=== PATIENT | male | born 1960 | race Caucasian/White ===

== ENCOUNTER → 2021-11-15 | Outpatient (CLI) | payer OTHER ==
[~2021-11-15] MED LIST: ACET500 PO; ALBU90OI INH; ASPI325EC PO; BUDESONIDE1 MG/2 M1 INH; Doxycycline Mo100 M1 PO; IPRAT-ALBUT 0.5-3 ML INH; IVERMECTIN3 MG PO; Prednisone10 MG PO
[2021-11-15 10:31] LABS: BASOPHILS ABSOLUTE AUTO 0.02 K/mm3 (0.00-0.23); BASOPHILS PERCENT AUTO 1 % (0-2); EOSINOPHILS PERCENT AUTO 0 % (0-6); Hematocrit 43.5 % (37.0-53.0); Hemoglobin 14.9 g/dL (13.5-17.5); IMMATURE GRAN ABSOLUTE AUTO 0.05 K/mm3 (0.00-0.10); IMMATURE GRAN PERCENT AUTO 1 % (0-1); LYMPHOCYTES ABSOLUTE AUTO 0.83 K/mm3 (0.84-5.20); LYMPHOCYTES PERCENT AUTO 20 % (21-46); MONOCYTES ABSOLUTE AUTO 0.25 K/mm3 (0.16-1.47); MONOCYTES PERCENT AUTO 6 % (4-13); Mean Corpuscular HGB 28.9 pg (26.0-34.0); Mean Corpuscular HGB Conc 34.3 g/dL (31.5-36.5); Mean Corpuscular Volume 85 fL (80-100); NEUTROPHILS PERCENT AUTO 73 % (41-73); RDW Coefficient Variation 11.9 % (11.7-14.2); Red Blood Cell Count 5.15 M/mm3 (4.30-5.90); White Blood Cell Count 4.25 K/mm3 (4.00-11.30)
[2021-11-15 10:34] LABS: Alanine Aminotransfer (ALT/SGP 47 U/L (12-78); Albumin, Blood 3.8 g/dL (3.4-5.0); Albumin/Globulin Ratio 1.2 (0.8-1.8); Alk Phos 69 U/L (40-126); Anion Gap 12 mmol/L (6-16); Aspartate Aminotrans (AST/SGOT 39 U/L (12-37); Bilirubin, Total 0.5 mg/dL (0.1-1.0); Blood Urea Nitrogen 13 mg/dL (8-24); Bun/Creatinine Ratio 12.5 (12.0-20.0); CO2, Blood 27 mmol/L (21-32); Chloride, Blood 104 mmol/L (98-108); Creatinine, Blood 1.04 mg/dL (0.60-1.20); Globulin, Blood 3.3 g/dL (2.2-4.0); Glomerular Filtration Rate >60 (60-); Glucose, Blood 128 mg/dL (70-99); Potassium, Blood 4.5 mmol/L (3.5-5.5); Sodium, Blood 143 mmol/L (136-145); Total Protein, Blood 7.1 g/dL (6.4-8.2)
[2021-11-15 10:35] LABS: Mean Platelet Volume 11.5 fL (9.1-12.4)
[2021-11-15 11:54] LABS: Platelet Count 118 K/mm3 (150-400)
== END | disposition home or self-care (01) ==
LOC: LAB SHORT 10:09 → LAB 10:09
PROVIDERS: Physician Assistant
DX: R09.02 Hypoxemia (principal)
CPT/HCPCS: 80053; 85025; 85379

== ENCOUNTER 2021-11-19 07:43 | Inpatient (IN) | payer OTHER ==
[~2021-11-19] VITALS: Ht 167.6 cm; Wt 66.7 kg
[2021-11-19 09:18] LABS: BASOPHILS ABSOLUTE AUTO 0.01 K/mm3 (0.00-0.23); BASOPHILS PERCENT AUTO 0 % (0-2); EOSINOPHILS PERCENT AUTO 0 % (0-6); Hematocrit 40.3 % (37.0-53.0); Hemoglobin 13.5 g/dL (13.5-17.5); IMMATURE GRAN ABSOLUTE AUTO 0.09 K/mm3 (0.00-0.10); IMMATURE GRAN PERCENT AUTO 1 % (0-1); LYMPHOCYTES ABSOLUTE AUTO 0.46 K/mm3 (0.84-5.20); LYMPHOCYTES PERCENT AUTO 6 % (21-46); MONOCYTES ABSOLUTE AUTO 0.39 K/mm3 (0.16-1.47); MONOCYTES PERCENT AUTO 5 % (4-13); Mean Corpuscular HGB 28.5 pg (26.0-34.0); Mean Corpuscular HGB Conc 33.5 g/dL (31.5-36.5); Mean Corpuscular Volume 85 fL (80-100); Mean Platelet Volume 10.4 fL (9.1-12.4); NEUTROPHILS ABSOLUTE AUTO 6.38 K/mm3 (1.96-9.15); NEUTROPHILS PERCENT AUTO 87 % (41-73); Platelet Count 203 K/mm3 (150-400); RDW Coefficient Variation 11.5 % (11.7-14.2); RDW Standard Deviation 35.9 fL (35.1-46.3); Red Blood Cell Count 4.73 M/mm3 (4.30-5.90); White Blood Cell Count 7.33 K/mm3 (4.00-11.30)
[2021-11-19 09:33] LABS: Alanine Aminotransfer (ALT/SGP 88 U/L (12-78); Albumin, Blood 2.7 g/dL (3.4-5.0); Albumin/Globulin Ratio 0.6 (0.8-1.8); Alk Phos 63 U/L (50-136); Anion Gap 9 mmol/L (6-16); Aspartate Aminotrans (AST/SGOT 46 U/L (12-37); Bilirubin, Total 0.5 mg/dL (0.1-1.0); Blood Urea Nitrogen 17 mg/dL (8-24); Bun/Creatinine Ratio 22.7 (12.0-20.0); CO2, Blood 21 mmol/L (21-32); Chloride, Blood 113 mmol/L (98-108); Creatinine, Blood 0.75 mg/dL (0.60-1.20); Globulin, Blood 4.4 g/dL (2.2-4.0); Glomerular Filtration Rate >60 (60-); Glucose, Blood 124 mg/dL (70-99); Potassium, Blood 3.4 mmol/L (3.5-5.5); Sodium, Blood 143 mmol/L (136-145); Total Protein, Blood 7.1 g/dL (6.4-8.2)
[2021-11-19 10:08] LABS: Base Excess Venous 0.8 mmol/L; Bicarbonate Venous 24.6 mmol/L (24.0-30.0); PCO2 Venous 42.6 mmHg (38-42); PO2 Venous 53.2 mmHg (38-42); pH Blood Venous 7.39 (7.34-7.37)
[2021-11-19] MEDS ORDERED: IVERMECTIN3 MG PO (14:53)
[2021-11-19] MEDS ORDERED: Prednisone10 MG PO (14:57)
[2021-11-19] MEDS ORDERED: Doxycycline Mo100 M1 PO (14:58)
[2021-11-19] MEDS ORDERED: ASPI325EC PO (15:01)
[2021-11-19] MEDS ORDERED: IPRAT-ALBUT 0.5-3 ML INH (15:05)
[2021-11-19] MEDS ORDERED: BUDESONIDE1 MG/2 M1 INH (15:06)
[2021-11-19] MEDS ORDERED: ACET500 PO (15:07)
[2021-11-19] MEDS ORDERED: ALBU90OI INH (15:09)
--- NOTE | 2021-11-19 16:47 | NUR ---
PT ARRIVED TO ROOM AT 1415. PT CONTINUES TO FEEL VERY TIRED, BUT STATES HE IS FEELING MUCH BETTER COMPARED TO WHEN HE FIRST ARRIVED. PT IS NOW ON 4L OF O2 AND MAINTING MID 90s. PT HAS CALL LIGHT WITHIN REACH. WILL CONTINUE TO MONITOR.
--- NOTE | 2021-11-20 05:12 | NUR ---
PT WAS ALERT AND OREINTED X4, IND IN ROOM, ON 5L NC AND DESATS INTO THE LOW 80'S WITHOUT O2 AND AMBULATION. PT EDUCATED ON KEEPING NC IN PLACE AND USING CALL LIGHT TO MAKE NEEDS KNOWN. PT CONTINUES TO HAVE DIARRHEA. LUNGS ARE DIM IN LOWER BASES, CLEAR WITH PRODUCTIVE COUGH. STAFF WILL CONT TO MONITOR.
[2021-11-20 05:34] LABS: BASOPHILS ABSOLUTE AUTO 0.01 K/mm3 (0.00-0.23); BASOPHILS PERCENT AUTO 0 % (0-2); EOSINOPHILS PERCENT AUTO 0 % (0-6); Hematocrit 39.5 % (37.0-53.0); Hemoglobin 13.4 g/dL (13.5-17.5); IMMATURE GRAN PERCENT AUTO 1 % (0-1); LYMPHOCYTES ABSOLUTE AUTO 0.69 K/mm3 (0.84-5.20); LYMPHOCYTES PERCENT AUTO 8 % (21-46); MONOCYTES ABSOLUTE AUTO 0.68 K/mm3 (0.16-1.47); MONOCYTES PERCENT AUTO 8 % (4-13); Mean Corpuscular HGB 28.6 pg (26.0-34.0); Mean Corpuscular HGB Conc 33.9 g/dL (31.5-36.5); Mean Corpuscular Volume 84 fL (80-100); Mean Platelet Volume 10.5 fL (9.1-12.4); NEUTROPHILS ABSOLUTE AUTO 7.46 K/mm3 (1.96-9.15); NEUTROPHILS PERCENT AUTO 84 % (41-73); Platelet Count 233 K/mm3 (150-400); RDW Coefficient Variation 11.5 % (11.7-14.2); RDW Standard Deviation 35.1 fL (35.1-46.3); Red Blood Cell Count 4.69 M/mm3 (4.30-5.90); White Blood Cell Count 8.94 K/mm3 (4.00-11.30)
[2021-11-20 06:31] LABS: Anion Gap 12 mmol/L (6-16); Blood Urea Nitrogen 21 mg/dL (8-24); Bun/Creatinine Ratio 27.6 (12.0-20.0); CO2, Blood 22 mmol/L (21-32); Calcium, Blood 9.1 mg/dL (8.5-10.1); Chloride, Blood 109 mmol/L (98-108); Creatinine, Blood 0.76 mg/dL (0.60-1.20); Glomerular Filtration Rate >60 (60-); Glucose, Blood 104 mg/dL (70-99); Potassium, Blood 4.3 mmol/L (3.5-5.5); Sodium, Blood 143 mmol/L (136-145)
--- NOTE | 2021-11-20 17:02 | NUR ---
NO ACUTE CHANGES PT AOX4 AND COOPERATIVE OF CARE. PT MAINTINING MID 90s ON 5L O2. PT IS A STANDBY ASSIST AND CALLS APPROPRIATELY. NO DISTRESS NOTED AND WILLING TO TURN WHEN NEEDED TO HELP HIS O2 LEVELS MAINTAIN. CALL ALARM WITHIN REACH WILL CONTINUE TO MONITOR.
--- NOTE | 2021-11-21 05:51 | NUR ---
A&0X4, STARTED THE NIGHT ON 4L, DESATED AND REQUIRED OXYMIZER FOR A SHORT PERIOD, PATIENT ABLE TO PRONE AND TRANSITION BACK TO [place]. REPORTS HAVING DARK STOOL, IS AWARE STOOL SAMPLE IS NEEDED. PATIENT IS EAGER TO GET BETTER AND RETURN HOME. NO ACUTE CHANGES OVERNIGHT.
--- NOTE | 2021-11-21 13:39 | NUR ---
PT NON COMPLIANT. STATES HE DOES NOT WANT ANYONE IN HIS ROOM AND DOES NOT WANT ANYONE TO KNOCK ON HIS DOOR. PT REFUSED LAB DRAWS AND ANY MORE MEDICATIONS AT THIS TIME. STATES HE IS RECORDING EVERYTHING BECAUSE "NO ONE IS LISTENING WHEN I ASK FOR THINGS AND NO ONE IS DOING WHAT I NEED." WHEN THIS NURSE TRIED TO EXPLAIN THE REASON FOR MEDICATIONS AND LABS HE STATED "YOU CALL IT TRYING TO HELP, I CALL IT INEPTITUDE" PT REFUSING O2 AT THIS TIME WELL, HE TOOK IT OFF AND PUT IT ON THE FLOOR. PT WAS ON HIGH FLOW O2 FOR COVID 19.
--- NOTE | 2021-11-21 14:38 | NUR ---
UPDATE: WET CROWN BLOCKING OPERATOR CHANDRA CALLED TO NOTIFY RN THAT PT'S HR WAS IN THE 160'S. THIS RN WENT TO PT'S ROOM AND CONT. BIOX SHOWED HR IN THE 180'S AND O2 SATS RANGING 78-80%. PT UP IN ROOM, AGITATED. [place] RN WITH PT TRYING TO PROVIDE REASSURANCE AND HELP CONTROL HIS BREATHING. PT IS UPSET ABOUT BEING IN THE HOSPITAL AND NEEDING ASSISTANCE WITH THINGS. THIS RN CALLED DR. SANCHEZ WHO GAVE A ONE TIME ORDER FOR 1 MG IV ATIVAN. BROUGHT ATIVAN TO THE ROOM, AND PT WAS BACK IN BED, VISITOR AT BEDSIDE. PT NOT WANTING THE ATIVAN AT THIS TIME. HR DOWN TO 81 AND O2 AT 92% ON 5 L VIA NC. RT AILYN TO ROOM TO ASSESS PT.
--- NOTE | 2021-11-21 16:15 | NUR ---
DAY SHIFT SUMMARY PT HAS BEEN AGITATED, VERBALLY AGRESSIVE, AND NON-COMPLIANT THIS SHIFT. PT MAIN COMPLAINT IS THAT HE WANTS TO BE LEFT ALONE TO SLEEP WITHOUT INTERUPTIONS. LABS, VITALS, AND MEDICATIONS HAVE BEEN REFUSED. CALL LIGHT WITHIN REACH OF PT. PT ON 5L O2 NC AT TIME OF THIS WRITING. SED'S HAVE BEEN ORDERED, PT REFUSES USE. STOOL SAMPLE UNABLE TO BE OBTAINED. PT INDEPENDENT IN ROOM. CURRENTLY TELE ON WITH SR AT 76. VISITOR HERMILA AT BEDSIDE AND PT HAS CALMED DOWN AND IS NOW RESTING. WILL CONTINUE TO MONITOR THROUGH REMAINDER OF SHIFT.
[2021-11-21 17:16] LABS: Hemoglobin 14.6 g/dL (13.5-17.5)
--- NOTE | 2021-11-21 22:40 | NUR ---
DURING REGULAR ROUNDING, JOSE BECAME IRRITATED AND JUMPED OUT OF BED TO RAISE THEIR VOICE AT ME. STATING THAT I WAS "PUPOSEFULLY" WAKING THEM UP FOR NOTHING AND CONTINUTED TO STATE THAT I WAS INCOMPETENT AT MY JOB. I DID NOT DO ANYTHING OTHER THAN OPEN THE DOOR TO LAY EYES ON THE PATIENT SO THAT I COULD ENSURE THAT THEY WERE IN NO ACUTE DISTRESS. I STATED THIS TO THE PATIENT AND EDUCATED HIM ON WHAT HOURLY ROUNDING AND Q2 ROUNDING WAS ON LINING CASER AND WHAT THAT 4-P'S ARE. THE PATIENT REQUESTED NOT TO BE BOTHERED UNLESS HE DECIDED TO USE THE CALL LIGHT. HIS CURRENT NURSE HAS BEEN INFORMED.
--- NOTE | 2021-11-22 00:54 | NUR ---
PATIENT HAS BEEN VERY RUDE AND UNRULY TONIGHT TOWARDS STAFF. MANAGER PRODUCT DESIGN WAS DOING HER JOB AND ROUNDING ON THE PATIENTS PER PROTOCOL. SHE SIMPLY OPENED THIS PATIENTS DOOR TO PEEK IN ON THE PATIENT AND MAKE SURE ALL WAS OKAY. PATIENT APPARENTLY WAS AWOKEN DURING HER ROUNDING AND BECAME VERY UPSET THAT SHE "WOKE HIM". PATIENT HAS BEEN VERY DISRESPECTFUL AND RUDE TO STAFF SINCE THEN. I HAD CALLED THE EARTH SCIENCE FACULTY MEMBER PROVIDER TO REQUEST A SECOND DOSE OF THE MELATONIN FOR THE PATIENT AND TOOK IT IN TO HIM AND HE CONTINUED TO BE DISRESPECTFUL AND RUDE TO ME AT THIS TIME. TRACI, TABLET MACHINE OPERATOR, NOTIFIED AND ASKED TO GO SPEAK WITH THE PATIENT REGARDING HIS BEHAVIOR.
--- NOTE | 2021-11-22 04:34 | NUR ---
THE SECOND DOSE OF MELATONIN MUST HAVE BEEN EFFECTIVE ON THE PATIENT, HE WAS NO LONGER CALLING STAFF INTO HIS ROOM TO EXPRESS HIS FRUSTERATION WITH APPROX 30 MINUTES AFTER TAKING THE MEDICATION. PER THE PATIENTS REQUEST I HAVE ASKED THAT NO STAFF MEMBERS INTERUPT OR GO INTO THE PATIENTS ROOM THIS MORNING. I INSTRUCTED THE COMMERCIAL REAL ESTATE BROKER NOT TO GET MORNING VITALS AND ASKED LAB TO COME BACK BETWEEN 8 AND 9 THIS MORNING. PATIENT APPEARS TO BE SLEEPING COMFORTABLY IN BED AT THIS TIME. CALL LIGHT WITHIN REACH.
--- NOTE | 2021-11-22 17:08 | NUR ---
SUMMARY PT SITTING UP IN BED VISITING WITH HIS SPOUSE, PT HAS BEEN COOPERATIVE WITH CARE T/O THE DAY, HAD MANY QUESTIONS ABOUT MEDICATIONS EARLY THIS MORNING, EDUCATED PT REGARDING THE MEDICATIONS HE HAS BEEN PRESCRIBED IN THE HOSPITAL AND THEIR SIDE EFFECTS, PT HAS BEEN ON HIGH FLOW O2 3-5L NC, SATS REMAIN MID 80'S TO LOW 90'S DEPENDING ON ACTIVITY LEVEL, PT AND SPOUSE HOPEFUL HE CAN DISCHARGE TO HOME TOMORROW, VSS, WILL CONT TO MONITOR
--- NOTE | 2021-11-23 05:00 | NUR ---
SHAUNA OXYGEN LEVEL REMAINED IN THE MID 90'S ALL NIGHT. HE RECEIVED MELATONIN FOR SLEEP AND LORAZEPAM FOR ANXIETY. THAT APPARENTLY HELPED HIM SLEEP. HE REQUESTED NOT TO BE WAKEN UP TO EARLY FOR LABS OR VITALS SO THESE ARE POSTPONED. PRODUCTION PLANNER SCHEDULER PLANS ON RETURNING AROUND 7:30 AM
[2021-11-23 07:54] LABS: Hematocrit 42.7 % (37.0-53.0); Hemoglobin 14.1 g/dL (13.5-17.5)
--- NOTE | 2021-11-23 08:39 | NUR ---
UPDATE PT WAS ON 5L THIS AM, NOW ON 15L, SATS MID 80'S, RT PRESENT, DR SANCHEZ NOTIFIED
--- NOTE | 2021-11-23 17:34 | NUR ---
SUMMARY PT UP TO THE BATHROOM, IN ROOM ASSISTING, PT HAS BEEN COOPERATIVE WITH CARE T/O THE DAY, REMAINS ON 10L HIGH FLOW NASAL CANNULA, PT STARTING TO COUGH UP SECRETIONS, DR SANCHEZ AWARE, SHE DID COME BY AND SPEAK WITH THE SPOUSE ABOUT PT'S PROGRESS, PT HAS BEEN RESTING IN BED FOR MOST OF THE DAY, OCC USING THE URINAL, OCC UP TO THE BATHROOM, HAS BEEN INDEPENDENT, DESATS TO MID TO LOW 80'S WHEN UP, TAKES A WHILE TO RECOVER, WILL CONTINUE TO MONITOR
--- NOTE | 2021-11-24 04:19 | NUR ---
JIM IS STILL ON 5L NC, SPO2 IN THE UPPER 90'S. WAS ADMINISTERED MELATONIN AT BED TIME. HE REMAINED STABLE AND SLEPT ALL NIGHT.
[2021-11-24 07:53] LABS: BASOPHILS ABSOLUTE AUTO 0.04 K/mm3 (0.00-0.23); BASOPHILS PERCENT AUTO 0 % (0-2); EOSINOPHILS ABSOLUTE AUTO 0.09 K/mm3 (0.00-0.68); EOSINOPHILS PERCENT AUTO 1 % (0-6); Hematocrit 42.3 % (37.0-53.0); Hemoglobin 14.3 g/dL (13.5-17.5); IMMATURE GRAN ABSOLUTE AUTO 0.34 K/mm3 (0.00-0.10); IMMATURE GRAN PERCENT AUTO 4 % (0-1); LYMPHOCYTES ABSOLUTE AUTO 1.41 K/mm3 (0.84-5.20); LYMPHOCYTES PERCENT AUTO 14 % (21-46); MONOCYTES ABSOLUTE AUTO 1.21 K/mm3 (0.16-1.47); MONOCYTES PERCENT AUTO 12 % (4-13); Mean Corpuscular HGB 28.9 pg (26.0-34.0); Mean Corpuscular HGB Conc 33.8 g/dL (31.5-36.5); Mean Corpuscular Volume 86 fL (80-100); Mean Platelet Volume 9.9 fL (9.1-12.4); NEUTROPHILS ABSOLUTE AUTO 6.75 K/mm3 (1.96-9.15); NEUTROPHILS PERCENT AUTO 69 % (41-73); Platelet Count 397 K/mm3 (150-400); RDW Coefficient Variation 11.5 % (11.7-14.2); RDW Standard Deviation 35.8 fL (35.1-46.3); Red Blood Cell Count 4.95 M/mm3 (4.30-5.90); White Blood Cell Count 9.84 K/mm3 (4.00-11.30)
[2021-11-24 08:14] LABS: Albumin, Blood 2.7 g/dL (3.4-5.0); Anion Gap 7 mmol/L (6-16); Blood Urea Nitrogen 26 mg/dL (8-24); Bun/Creatinine Ratio 30.8 (12.0-20.0); CO2, Blood 26 mmol/L (21-32); Calcium, Blood 9.2 mg/dL (8.5-10.1); Chloride, Blood 110 mmol/L (98-108); Creatinine, Blood 0.84 mg/dL (0.60-1.20); Glomerular Filtration Rate >60 (60-); Glucose, Blood 109 mg/dL (70-99); Phosphorus, Blood 2.8 mg/dL (2.5-4.9); Sodium, Blood 143 mmol/L (136-145)
--- NOTE | 2021-11-24 16:24 | NUR ---
SHIFT SUMMARY PATIENT IS A/O X4, PLEASANT AND COOPERATIVE WITH CARE. PATIENT HAS BEEN TITRATED DOWN TO 3LPM OF HIGH FLOW 02, SATTING AT 93%, SPOUSE AT BEDSIDE MOST OF AFTERNOON. PATIENT HAS BEEN INDEPENDENT TO BATHROOM THIS SHIFT. PATIENT COMPLAINED OF INSOMNIA THIS SHIFT. DOC NOTIFIED. PATIENT REFUSED EVENING DOSE OF PROTONIX. PATIENT SAYS THEY PROBABLY WILL NOT TAKE SLEEP MEDS ORDERED FOR THEM. NO ACUTE CHANGES THIS SHIFT. WILL CONTINUE TO CARE FOR THE PATIENT UNTIL SHIFT REPORT IS GIVEN TO ONCOMING NURSE.
--- NOTE | 2021-11-25 04:45 | NUR ---
SHIFT SUMMARY JIM: JIM REMAINED STABLE ALL NIGHT HR IN THE MID 70'S SPO2 MID 90'S. VITALS WERE STABLE. HE WAS ADMINISTERED HIS SLEEPING PILLS. HE DID NOT CALL FOR ANYTHING ALL NIGHT.
[2021-11-25] MEDS ORDERED: BENADRYL25 MG PO (13:49)
[2021-11-25] MEDS ORDERED: GUAIFENESIN ER600 MG PO (13:50)
[2021-11-25] MEDS ORDERED: DEXA6 PO (13:51)
[2021-11-25] MEDS ORDERED: MELATONIN5 M1 PO (13:51)
[2021-11-25] MEDS ORDERED: OMEP20ER PO (13:52)
--- NOTE | 2021-11-25 14:42 | NUR ---
PT DISCHARGING TO HOME WITH . PT IN ROOM TO DISCUSS DISCHARGE INSTRUCTIONS INCLUDING FOLLOW UP APPOINTMENTS, DC MEDICATION AND PT EDUCATION. RESP THERAPY IN ROOM FOR HOME O2 EVAL. NO HOME O2 NEEDED AT THIS TIME. PT AND VERBALIZES UNDERSTANDING. DENIES ANY FURTHER QUESTIONS AT THIS TIME.
== END 2021-11-25 14:30 | disposition home or self-care (01) | DRG 177 ==
LOC: ER 07:43 → ERHOLD 10:04 → MEDS 14:30
PROVIDERS: Family Medicine; ADMIT Family Medicine
PROC: 3E0333Z Introduction of Anti-inflammatory into Peripheral Vein, Percutaneous Approach (ICD-10-PCS; principal; 2021-11-19)
PROC: 8E0ZXY6 Isolation (ICD-10-PCS; 2021-11-19)
PROC: XW033E5 Introduction of Remdesivir Anti-infective into Peripheral Vein, Percutaneous Approach, New Technology Group 5 (ICD-10-PCS; 2021-11-20)
DX: U07.1 COVID-19 (principal); J96.01 Acute respiratory failure with hypoxia; J12.82 Pneumonia due to coronavirus disease 2019; F41.9 Anxiety disorder, unspecified; G47.00 Insomnia, unspecified; R79.89 Other specified abnormal findings of blood chemistry; Z98.890 Other specified postprocedural states; Z79.899 Other long term (current) drug therapy; E87.6 Hypokalemia
CPT/HCPCS: 36415; 71045; 80048; 80053; 80069; 82803; 83605; 85014; 85018; 85025; 94640; 94761; 94762; 96365; 96375; 99285-25; A9270; C9113; J0248; J1100; J1650; J2060

== ENCOUNTER 2024-03-08 09:22 | Emergency (ER) | payer SELFPAY ==
[~2024-03-08] VITALS: Ht 172.7 cm; Wt 70.3 kg
[~2024-03-08 09:22] MED LIST changes: +BENADRYL25 MG PO; +DEXA6 PO; +GUAIFENESIN ER600 MG PO; +MELATONIN5 M1 PO; +OMEP20ER PO
[2024-03-08] MEDS ORDERED: NS 1,000 ML IV SCH (09:50)
[2024-03-08] MEDS ORDERED: HYDROmorphone HCl/Pf 1MG SYR IV ONE (09:50)
[2024-03-08] MEDS ORDERED: Ondansetron HCl 2 MG / ML 2ML Vial IV ONE (09:50)
[2024-03-08 09:56] LABS: BASOPHILS ABSOLUTE AUTO 0.05 K/mm3 (0.00-0.23); BASOPHILS PERCENT AUTO 1 % (0-2); EOSINOPHILS ABSOLUTE AUTO 0.06 K/mm3 (0.00-0.68); EOSINOPHILS PERCENT AUTO 1 % (0-6); Hematocrit 41.4 % (37.0-53.0); Hemoglobin 14.3 g/dL (13.5-17.5); IMMATURE GRAN ABSOLUTE AUTO 0.04 K/mm3 (0.00-0.10); IMMATURE GRAN PERCENT AUTO 0 % (0-1); LYMPHOCYTES ABSOLUTE AUTO 1.22 K/mm3 (0.84-5.20); LYMPHOCYTES PERCENT AUTO 12 % (21-46); MONOCYTES PERCENT AUTO 5 % (4-13); Mean Corpuscular HGB 29.5 pg (26.0-34.0); Mean Corpuscular HGB Conc 34.5 g/dL (31.5-36.5); Mean Corpuscular Volume 85 fL (80-100); Mean Platelet Volume 12.1 fL (9.1-12.4); NEUTROPHILS ABSOLUTE AUTO 8.47 K/mm3 (1.96-9.15); NEUTROPHILS PERCENT AUTO 82 % (41-73); Platelet Count 141 K/mm3 (150-400); RDW Coefficient Variation 11.9 % (11.7-14.2); RDW Standard Deviation 37.2 fL (35.1-46.3); Red Blood Cell Count 4.85 M/mm3 (4.30-5.90); White Blood Cell Count 10.34 K/mm3 (4.00-11.30)
[2024-03-08 10:34] LABS: Albumin, Blood 4.3 g/dL (3.4-5.0); Albumin/Globulin Ratio 1.4 (0.8-1.8); Bilirubin, Total 0.8 mg/dL (0.1-1.0); Bun/Creatinine Ratio 12.5 (12.0-20.0); Calcium, Blood 9.6 mg/dL (8.5-10.1); Creatinine, Blood 1.2 mg/dL (0.60-1.20); Globulin, Blood 3.1 g/dL (2.2-4.0); Potassium, Blood 3.4 mmol/L (3.5-5.5); Total Protein, Blood 7.4 g/dL (6.4-8.2)
[2024-03-08] MEDS ORDERED: OxyCODONE 7.5 mg/Acetam 325 mg TABLET PO ONE (11:10)
[2024-03-08] MEDS ORDERED: Ketorolac Tromethamine 30mg Vial IV ONE (11:10)
[2024-03-08 11:24] LABS: Source, Urine Clean Catch
[2024-03-08 11:35] LABS: Appearance, Urine Clear (Clear); Bilirubin, Urine Neg (Neg); Blood, Urine Neg (Neg); Color, Urine Yellow (P-Yellow); Glucose Qualitative, Urine Neg (Neg); Ketones, Urine Neg (Neg); Leukocyte Esterase, Urine Neg (Neg); Nitrite, Urine Neg (Neg); Protein, Urine Neg (Neg); Urobilinogen, Urine NORM (Normal)
[2024-03-08 12:00] VITALS: BP 128/73
[2024-03-08] MEDS ORDERED: Percocet 5-3251 EACH PO (12:33)
== END 2024-03-08 12:42 | disposition home or self-care (01) ==
LOC: ER 09:22
PROVIDERS: Physician Assistant
DX: N20.0 Calculus of kidney (principal); N40.0 Benign prostatic hyperplasia without lower urinary tract symptoms; Z79.899 Other long term (current) drug therapy
CPT/HCPCS: 74177; 80053; 81003; 83690; 85025; 93005; 93010; 96361; 96374-59; 96375; 99284-25; A9270; J1170; J1885; J2405; J7030; Q9967

== ENCOUNTER → 2024-12-10 | Outpatient (CLI) | payer OTHER ==
[~2024-12-10] MED LIST changes: +Percocet 5-3251 EACH PO
[2024-12-10 08:31] LABS: BASOPHILS ABSOLUTE AUTO 0.01 K/mm3 (0.00-0.23); BASOPHILS PERCENT AUTO 0 % (0-2); EOSINOPHILS ABSOLUTE AUTO 0.02 K/mm3 (0.00-0.68); EOSINOPHILS PERCENT AUTO 0 % (0-6); Hematocrit 35.1 % (37.0-53.0); Hemoglobin 11.1 g/dL (13.5-17.5); IMMATURE GRAN ABSOLUTE AUTO 0.02 K/mm3 (0.00-0.10); IMMATURE GRAN PERCENT AUTO 0 % (0-1); LYMPHOCYTES ABSOLUTE AUTO 0.42 K/mm3 (0.84-5.20); LYMPHOCYTES PERCENT AUTO 7 % (21-46); MONOCYTES ABSOLUTE AUTO 0.45 K/mm3 (0.16-1.47); MONOCYTES PERCENT AUTO 8 % (4-13); Mean Corpuscular HGB 25.1 pg (26.0-34.0); Mean Corpuscular HGB Conc 31.6 g/dL (31.5-36.5); Mean Corpuscular Volume 79 fL (80-100); Mean Platelet Volume 10.9 fL (9.1-12.4); NEUTROPHILS ABSOLUTE AUTO 5.09 K/mm3 (1.96-9.15); NEUTROPHILS PERCENT AUTO 85 % (41-73); Platelet Count 150 K/mm3 (150-400); RDW Coefficient Variation 14.4 % (11.7-14.2); RDW Standard Deviation 41.3 fL (35.1-46.3); Red Blood Cell Count 4.43 M/mm3 (4.30-5.90); White Blood Cell Count 6.01 K/mm3 (4.00-11.30)
[2024-12-10 08:58] LABS: Albumin, Blood 2.9 g/dL (3.4-5.0); Albumin/Globulin Ratio 0.6 (0.8-1.8); Bilirubin, Direct 5.7 mg/dL (0.0-0.3); Bilirubin, Total 6.7 mg/dL (0.1-1.0); Bun/Creatinine Ratio 10.8 (12.0-20.0); Calcium, Blood 10.7 mg/dL (8.5-10.1); Creatinine, Blood 1.02 mg/dL (0.60-1.20); Globulin, Blood 4.6 g/dL (2.2-4.0); Potassium, Blood 4.3 mmol/L (3.5-5.5); Total Protein, Blood 7.5 g/dL (6.4-8.2)
== END | disposition home or self-care (01) ==
LOC: LAB SHORT 08:24 → LAB 08:24
PROVIDERS: Emergency Medicine
DX: R10.9 Unspecified abdominal pain (principal); R17 Unspecified jaundice
CPT/HCPCS: 80053; 82248; 83690; 85025